=== PATIENT | male | born 1945 | race Caucasian/White ===

== ENCOUNTER 2021-12-11 13:45 | Outpatient (RCR) | payer MEDICARE, SELFPAY | END 2021-12-11 14:44 | disposition home or self-care (01) | PROVIDERS: PCP Family Medicine; Visit Provider Family Medicine | DX: M54.50 Low back pain, unspecified (principal); R26.9 Unspecified abnormalities of gait and mobility; Z51.89 Encounter for other specified aftercare | CPT/HCPCS: 97110; 97140; 97535 ==

== ENCOUNTER 2022-03-11 09:04 | Day surgery (SDC) | payer MEDICARE, SELFPAY ==
--- NOTE | 2022-03-04 14:13 | PT.OPEX ---
PT [place] Outpatient Eval PT [facility] Outpatient Eval Start: 03/04/22 07:27 Freq: Status: Active Protocol: Document 03/04/22 14:03 CLK (Rec: 03/04/22 14:09 CLK [id number]) E-signed By Esther Tariq PT Physical Therapy Outpatient Evaluation Insurance Information Recert Due Date 05/27/22 Insurance Name Medicare B Medical Diagnosis Pre-Op Lt TKA Treating Diagnosis Lt knee pain, impaired WB/ balance and gait skills Fall Risk Referring MD Dr Valentin Mo Subjective Subjective Roc reports having Lt knee pain for quite a few years - 2018? Initially had a scope. Noted severe arthritis which has advanced to the necessity of requiring replacement. No fall no accident. Pain is an average of 6/10 and located at distal quad and med/lat knee joint, but closer to front. Twisting movement hurts the most. I can still tolerate walking for about an hour at a mod to brisk pace. I have a walking stick, but will borrow a walker from someone. I only take ibuprofen occasionally. Have been icing intermittently . Denies any significant edema or N/T or referred pain. Pain Comments 10/25 Date of Last Physician Visit 02/27/22 Date of Next Physician Visit 03/11/22 Current Work Status Retired Precautions Treatment Precautions/Contraindications Heart Involvement/Stents, Rt shoulder Scope, Skin CA, Chronic LBP Weight Bearing Status Full Weight Bearing Therapy Limitations/Systems Review Not Limited Objective Range of Motion Lt knee 2-2-129 / Rt knee 2-0- 134 Strength Lt knee Flex 3+/5, hamstring 4 /5 Ankle Inver/Ever 4-/5 Swelling Mid Patellar girth: Rt 40 cm / Lt 40.4 cm Palpation Pain report with mild to mod patellar grind, with light+ pressure at distal quad as well as med and lat joint line . No pain at hamstring or gastroc, until overstretched by PT. Balance & Gait Reduced arm swing and UT/LT seperation with gait, but full WB and symmetric stride. Good Lt knee AROM SLS 5 seconds Posture Flattened lumbar spine Assessment Assessment/Impression 77 yo with DX of chronic Lt knee pain and OA. He arrived today via IND ambulation without any AD. He typically does not use an aid, but has a walking stick. He has good ambulation with full WB and heel to toe gait. He can sit to stand without use of UE on chair arms with only slightly reduced Lt WB in process. Double leg squat to approx 70 deg before observed small weight shift to reduce WB into involved Lt side. He can SLS for 5+ seconds, AROM 2-2-129. No significant measurable edema at mid pat (.4 mm). He lives with his , who will be with him for full rehab. He will be borrowing a walker and cane from a friend. Looking to also borrow a shower chair and commode elevation seat. He has good understanding of HEP, we completed them here and he was educated in Fall Preventiong, pain control and wound care. Thank you for this referral. Plan of Care Rehabilitation Potential Good Physical Therapy Goals By the end of one pre-op session, Roc will have: 1. Educated in knowledge of Home Care Recovery (AD, Home modifications, Lifestyle changes, Physical activity expectations) 2. Client will be educated in pain control and wound care, bathing requirements. 3. Educated in Fall Prevention in the home 4. Demonstrated and IND in proper execution of TKA HEP with HO. Coordination/Communication With Referral Source Treatment Plan/Direct Interventions Gait Training,Neuromuscular Re -ed,Self-Care/Home Management, Therapeutic Activities, Therapeutic Exercises Frequency/Duration One Pre-Op visit 2X/Wk for 8-10 weeks p/o Patient Will Be Discharged From Therapy Completion of LTG(s),Skills Plateau,Independent w/HEP, Independently Progressing Evaluation Billing Untimed Code Treatment Minutes 29 Complexity Moderate Certification Information Initial Certification Date 03/04/22 Ending Certification Date 05/27/22 Provider Signature Shows Agreement With POC & Medical Necessity Physician Signature & Date Requested Please Sign/Date Here Physician Comment/Change : Physician NPI Number #
[2022-03-11] VITALS (26 sets, daily range): BP systolic 99–138; BP diastolic 63–93; PULSE 53–82; RESP 16–18; TEMP 35.2–36.5; O2SAT 94–100; BMI 27.6
[2022-03-11] MEDS: TRANEXAMIC ACID 100 MG/ML INJ 1000 MG IV (09:08)
[2022-03-11] MEDS: CELECOXIB 200 MG CAPSULE PO ×2 (09:25→21:40)
[2022-03-11] MEDS: ACETAMINOPHEN 500 MG TABLET 1000 MG PO ×2 (09:25→17:38)
[2022-03-11] MEDS: OXYCODONE (CR) 10 MG TAB.ER.12H PO (09:25)
[2022-03-11] MEDS: SODIUM CHLORIDE 0.9 % (FLUSH) 10 ML SYRINGE IVF (09:30)
[2022-03-11] MEDS: LACTATED RINGERS 1000 ML 1,000 ML 100 ML IV (09:30)
--- NOTE | 2022-03-11 10:24 | SUR.PREOP ---
TIME?OUT:?1020 PT/Oniel MOLINA RN/Tracy GALLARDO MDA?VERIFICATION?OF?SURGICAL?SITE,?PROCEDURE,?AND?CONSENT OBTAINED?PRIOR?TO?INVASIVE?PROCEDURE.
[2022-03-11] MEDS: fentaNYL 100 MCG/2 ML inj IVP (10:25)
[2022-03-11] MEDS: MIDAZOLAM HCL 1 MG/ML inj IVP (10:25)
--- NOTE | 2022-03-11 10:42 | P.NB_ITS ---
Nerve Block Nerve Block Time Seen by Provider: : Date Seen: 03/11/22 Type of block requested by surgeon for post-operative analgesia: adductor canal Side: left Time out performed: Yes Verification of patient name: Yes Verification of date of : Yes Site marking: site marked Name of person performing procedure: Narayan Continuous monitoring Was continuous monitoring of O2 sat, B/P, telemetry monitor, recorded every 15 minutes?: Yes Procedure Checklist: sterile prep, needles and gloves Ultrasound guided. Images saved: Yes Medications given in 5ml increments after negative aspiration: Ropivicaine %: 0.5 mL: 20 Needle gauge: 20 Decadron (mg): 10 Precedex (mcg): 25 Patient tolerated procedure well: Yes Additional comments: Needle noted adjacent to nerve Block Charges Block Charge (with Pro Fee): Femoral Nerve Use of Ultrasound Machine for Block: Yes- US Guidance/pain block
--- NOTE | 2022-03-11 10:48 | P.NB_ITS ---
Nerve Block Nerve Block Time Seen by Provider: : Date Seen: 03/11/22 Type of block requested by surgeon for post-operative analgesia: geniculars Side: left Time out performed: Yes Verification of patient name: Yes Verification of date of : Yes Site marking: site marked Name of person performing procedure: Narayan Continuous monitoring Was continuous monitoring of O2 sat, B/P, environmental monitoring technician, recorded every 15 minutes?: Yes Procedure Checklist: sterile prep, needles and gloves Medications given in 5ml increments after negative aspiration: Ropivicaine %: 0.5 mL: 9 Needle gauge: 25 Patient tolerated procedure well: Yes Block Charges Block Charge (with Pro Fee): Genicular Nerve Block Use of Ultrasound Machine for Block: No
[2022-03-11] MEDS: CEFAZOLIN 2 GM INJ IVP (10:50)
--- NOTE | 2022-03-11 12:34 | CRLHL7_ITS ---
For Patients: As a result of the Cures Act, medical imaging exams and procedure reports are released immediately into your electronic medical record. You may view this report before your referring provider. If you have questions, please contact your health care provider. Indication: Postop total knee arthroplasty. Technique: Two views. Comparison: None. Findings/Impression: Postsurgical change of total knee arthroplasty. Prosthesis components are in expected position. No fracture. Postsurgical subcutaneous gas. No radiopaque foreign body. Dictated by Erik Plata MD @ 03/11/2022 2:23:06 PM (Electronically Signed)
--- NOTE | 2022-03-11 12:35 | P.ORPRC_ITS ---
Procedure Note Date of procedure: 03/11/22 Procedure: SURGEON: Valentin Mo MD WORK MEASUREMENT ENGINEER: Isha Pittman PA-C PREOPERATIVE DIAGNOSIS: Left knee osteoarthritis POSTOPERATIVE DIAGNOSIS: Left knee osteoarthritis NAME OF OPERATION: Left total knee arthroplasty ANESTHESIA: Spinal ESTIMATED BLOOD LOSS: 0 mL COMPLICATIONS: None SPECIMENS: None DRAINS: None PREOPERATIVE ANTIBIOTICS: Ancef 2 grams IMPLANTS: 1. J&J Attune # 8 posterior stabilized femur 2. # 8 fixed-bearing tibia 3. # 8 posterior stabilized, 5 mm fixed-bearing polyethylene 4. 41 patella INDICATIONS: The patient is a 77-year-old male with a longstanding history of severe, unrelenting left knee pain secondary to end-stage (grade IV) left knee osteoarthritis. Despite appropriate nonoperative management, including activity modification, anti-inflammatories, pdcn-wgs-fqskhhc pain medication, bracing, physical therapy, and injections they continue to have pain and disability. Operative intervention was offered. The risks, benefits and expected outcomes were discussed in detail. These included but were not limited to: Infection, bleeding, injury to blood vessel or nerve, venous thromboembolism. All questions were answered to their satisfaction. Use of an resident programs assistant was necessary throughout the case for patient positioning and safety, soft tissue retraction, and closure. PROCEDURE: Spinal anesthesia was administered. The patient was placed supine on the operating table. The resident programs assistant made sure the patient was positioned appropriately. The lower extremity was prepped and draped in the usual sterile fashion. The limb was exsanguinated with the Rashid bandage. The pneumatic tourniquet was inflated to 300 mmHg. A standard anterior incision was made with the knee in flexion. Subcutaneous dissection was sharply taken through fascial layer #1. Full-thickness medial and lateral flaps were elevated. The resident programs assistant retracted the soft tissues and protected them throughout the case. A standard medial parapatellar approach was made. The patella was everted. The infrapatellar fat pad was preserved. The menisci and cruciate ligaments were sharply d?brided. Marginal osteophytes were d?brided with the rongeur. The drill was used to penetrate the femoral canal. The canal was aspirated and irrigated with pulse lavage. The intramedullary femoral guide was placed for a 5-degree valgus cut, removing 10 mm off the distal femur. The saw was used to make the cut. Whitesides line and the trans epicondylar axis were marked. The femoral sizing guide was pinned onto the distal femur. Three degrees of external rotation nicely parallels the transepicondylar axis. Pins were placed for posterior referencing. The four-in-one cutting guide was pinned onto the distal femur. The anterior, posterior, and chamfer cuts were made. The resident programs assistant protected the collateral ligaments. The box cutting guide was pinned. The box cuts were made. The boxed trial was placed and was an excellent fit. Drill holes for the lugs were made. Attention was then turned to the proximal tibia. The extramedullary tibial guide was placed for a neutral varus/valgus cut with 5 degrees of posterior slope, removing 2 mm based off the medial tibial surface. The resident programs assistant protected the collateral ligaments and the neurovascular bundle. The saw was used to make the cut. Trial components were placed. The knee was nicely balanced in both flexion and extension. The trial components were removed. The tray was placed in appropriate rotation, parallel to our tibial cutting pins. It was pinned by the resident programs assistant and the drill and the punch were used. The tray was removed. The punch was used again. We placed a bone plug in the femoral canal. Attention was then turned to the patella. [place] patellar thickness was 24 mm. The lobster claw resection guide was used with the 9.5 mm mohamud. The saw was used to make the cut. Drill holes were made by the resident programs assistant. The trial was placed and was an excellent fit. Cancellous surfaces were irrigated with pulse lavage and thoroughly dried by the resident programs assistant. We cemented the tibial component, then the femoral component. A trial spacer was placed. The knee was brought into full extension. We then cemented the patellar component. Excessive cement was removed. The cement was allowed to harden. We impacted the 5 mm polyethylene onto the tibial tray. The knee was taken through a range of motion and was found to be nicely balanced in both flexion and extension. The patella tracks centrally. The resident programs assistant did a three minute dilute Betadine solution soak. The resident programs assistant irrigated the wound with 3 liters of normal saline via pulse lavage. The resident programs assistant reapproximated the extensor mechanism with #1 Vicryl in an interrupted tqaifb-ej-ajfnv fashion. The resident programs assistant then ran the extensor mechanism with a #1 PDO Stratafix. The resident programs assistant closed the subcutaneous tissues with a 3-0 Stratafix and the skin with a running 3-0 Stratafix in a subcuticular fashion. Glue was used to seal the skin. The resident programs assistant placed a dry dressing, SUZIE stocking, and Polar Care. Sponge and needle counts were correct x2. The patient tolerated the procedure well. There were no apparent complications. They were carefully transferred to the hospital bed and taken to the postanesthesia care unit in satisfactory condition. PLAN: The patient will be mobilized with physical therapy. Aspirin will be used for DVT prophylaxis. They will be discharged to home once medically appropriate.
--- NOTE | 2022-03-11 13:15 | W.ANESCHARGE ---
Anesthesia Charges Start Date/Time Anesthesia Start Date: 03/11/22 Anesthesia Start Time: 10:45 Stop Date/Time Anesthesia Stop Date: 03/11/22 Anesthesia Stop Time: 13:12 Summary Emergency: No Extremes of Age: Over 72-CPT [id number]
--- NOTE | 2022-03-11 14:39 | P.IMCN_ITS ---
Date of Consult Consult date: 03/11/22 Requesting Physician: Orthopedics Primary Care Provider: Oz Cortez MD Consult Narrative Narrative: HOSPITALIST CONSULT Hospital Day # 1 Post Op Day # 0 NAME OF OPERATION:? Left total knee arthroplasty ANESTHESIA:? Spinal ESTIMATED BLOOD LOSS:? 0 mL COMPLICATIONS:? None The hospital medicine team was asked by orthopedics team to manage the patient's hx of Non Hodgkins Lymphoma and CAD, s/p NSTEMI and ANGELA x 2. Patient was interviewed on the floor, postop 3 hours. is bedside. He is coherent, insightful and making jokes. No obvious perioperative concerns or questions. I updated the [facility] histories and Medications and Allergies in the Expanse tabs REVIEW OF SYSTEMS: 12-point ROS completed with patient and negative unless otherwise stated in HPI or below. PHYSICAL EXAM: CODE STATUS: FULL CODE CONSTITUTIONAL: Conversive, good historian. A/O. Knows setting and context. VITAL SIGNS: see record. HEENT: Normocephalic, atraumatic. PERRL, EOMI, conjunctivae pink, no scleral icterus. Ears and nose externally normal. Pharynx normal. NECK: No JVD. No carotid bruit, no thyromegaly, no adenopathy. CHEST: Clear to auscultation bilaterally HEART: No harsh murmurs. S1/S2. ABDOMEN: Flat, soft, nontender. Normal bowel sounds. EXTREMITIES: No edema. MUSCULOSKELETAL: Surgical dressing is intact. No obvious hematoma. NEURO: Cranial nerves intact. Normal affect. No gross deficits. Speech intelligible. SKIN: No rashes, petechiae, concerning changes PSYCHIATRIC: Euthymic. INVESTIGATIONS: EMR Reviewed DISPOSITION: MedSurg Recovery; Discharge tomorrow DVT: Agree with ortho plan for DVT prevention GI: PO intake PFSH PFS Medical History (Updated 03/11/22 @ 15:04 by Liz Arreloa MD) Cataract Lymphoma (~06/2012) Mixed hyperlipidemia Skin cancer Spinal stenosis Surgical History (Updated 03/11/22 @ 15:03 by Liz Arreola MD) H/O heart artery stent History of lymph node biopsy History of removal of Port-a-Cath S/P appendectomy (~1964) S/P arthroscopy of right shoulder S/P medial meniscectomy of left knee (12/06/20) Status post left knee replacement Family History (Updated 02/25/22 @ 13:27 by July Ang RN) Mother Ovarian cancer Father History of heart bypass surgery Brother Diabetes Social History Smoking Status: Never smoker How often do you have a drink containing alcohol: never AUDIT-C Alcohol total score: 0 Non-prescribed substance use: denies use Caffeine: Yes (coffee, 1 cup/day) service: No Meds Home Medications and Allergies Home Medications Medication Instructions Recorded Confirmed Type atorvastatin 40 mg tablet 40 mg PO HS 01/07/22 03/11/22 History selenium 100 mcg tablet 100 mcg PO DAILY 01/07/22 03/11/22 History aspirin 81 mg tablet,delayed 81 mg PO DAILY 03/11/22 03/11/22 History release glucosamine 750 tq-upujhofmwru-mxe 1 tab PO BID 03/11/22 03/11/22 History no1 625 mg-C 30 mg-dougie 1 mg tablet (Rnfurctvyqj-Okcnbhuxcxa-TKJ) ibuprofen 200 mg tablet 200 - 800 mg PO Q6H PRN 03/11/22 03/11/22 History melatonin 3 mg tablet 3 mg PO HS 03/11/22 03/11/22 History multivitamin (Multiple Vitamins 1 tab PO DAILY 03/11/22 03/11/22 History tablet) nitroglycerin 0.4 mg sublingual 0.4 mg sublingual Q5M PRN 03/11/22 03/11/22 History tablet Allergies Allergy/AdvReac Type Severity Reaction Status Date / Time No Known Allergies Allergy Unknown Verified 03/11/22 09:13 Exam Const: Vital Signs, click to edit/add: Vital Signs - 24 hr 03/11/22 09:26 03/11/22 10:22 03/11/22 10:25 Temperature 97.7 F Pulse Rate 75 65 75 Pulse Rate [Pulse Oximeter] Respiratory Rate 18 18 16 Blood Pressure 138/93 H 138/81 122/81 Blood Pressure [Ri ght Arm] Pulse Oximetry 95 96 95 Oxygen Delivery Me thod Room Air Nasal Cannula Nasal Cannula Oxygen Flow Rate 3 3 03/11/22 10:30 03/11/22 13:15 03/11/22 13:20 Temperature 97.0 F L Pulse Rate 64 67 61 Pulse Rate [Pulse Oximeter] Respiratory Rate 16 16 16 Blood Pressure 104/68 100/63 99/63 Blood Pressure [Ri ght Arm] Pulse Oximetry 94 100 100 Oxygen Delivery Me thod Nasal Cannula OxyMask OxyMask Oxygen Flow Rate 3 4 4 03/11/22 13:25 03/11/22 13:30 03/11/22 13:35 Temperature Pulse Rate 65 64 65 Pulse Rate [Pulse Oximeter] Respiratory Rate 16 16 16 Blood Pressure 101/65 103/67 105/71 Blood Pressure [Ri ght Arm] Pulse Oximetry 99 97 97 Oxygen Delivery Me thod OxyMask OxyMask Room Air Oxygen Flow Rate 3 2 03/11/22 13:40 03/11/22 13:45 03/11/22 13:50 Temperature 97.0 F L Pulse Rate 64 64 64 Pulse Rate [Pulse Oximeter] Respiratory Rate 16 16 16 Blood Pressure 104/69 104/67 104/67 Blood Pressure [Ri ght Arm] Pulse Oximetry 96 96 97 Oxygen Delivery Me thod Room Air Room Air Room Air Oxygen Flow Rate 2 03/11/22 13:57 03/11/22 14:00 03/11/22 14:15 Temperature 95.4 F L Pulse Rate 64 Pulse Rate [Pulse Oximeter] 53 L 55 L Respiratory Rate 16 16 16 Blood Pressure Blood Pressure [Ri ght Arm] 106/64 109/69 112/71 Pulse Oximetry 99 99 Oxygen Delivery Me thod Room Air Room Air Oxygen Flow Rate Assessment and Plan Assessment and plan (1) Status post left knee replacement: Problem comment: February 2022, Dr. Mo [facility] medicine team is happy to follow the patient through to discharge. I agree with the DVT prophylaxis plan. I am adding telemetry for the evening. I reviewed his most recent stress test and cardiology visit in [facility]. No concerns. Status: Acute (2) Non-ST elevation (NSTEMI) myocardial infarction: Problem comment: NSTEMI in January of 2017. Cath revealed 90% stenosis in the proximal left circumflex coronary artery along with a 70% stenosis in the right posterior descending coronary artery. He had a 50% stenosis in the left anterior descending coronary artery, however, the IFR was negative. DSE placement to the proximal left circumflex coronary artery, and the posterior descending coronary artery. Echocardiogram at that time revealed normal left ventricular size and systolic function with estimated ejection fraction of 50%. There is basal inferior wall hypokinesis. He had no significant valve disease. Most recent nuclear perfusion stress test performed in the fall. That study was entirely normal, with a preserved ejection fraction. (60%) Status: Acute (3) H/O heart artery stent: Problem comment: January 2017. drug-eluting stent placement to the proximal left circumflex c oronary artery, and the posterior descending coronary artery. Status: Acute (4) Mixed hyperlipidemia: Status: Acute (5) Spinal stenosis: Status: Acute
[2022-03-11] MEDS: CEFAZOLIN 2 GM in 0.9 % SODIUM CHLORIDE Mini-bag 100 ML IVPB (16:58)
[2022-03-11] MEDS: OXYCODONE 5 MG TABLET PO ×2 (18:47→20:41)
[2022-03-11] MEDS: 0.9 % SODIUM CHLORIDE 500 ML IV (20:02)
[2022-03-11] MEDS: ONDANSETRON 2 MG/ML inj 4 MG IVP (20:02)
[2022-03-11 20:21] LABS: HCO3 VBG 29 mmol/L (21-28); PCO2 VBG 44 mmHG (40-50); pH VBG 7.417 (7.32-7.43)
[2022-03-11 20:23] LABS: Hemoglobin* 12.5 gm/dL (13.5-17.5)
[2022-03-11 20:38] LABS: Chloride* 99 mmol/L (96-114); Potassium* 4.7 mmol/L (3.6-5.1); Sodium* 136 mmol/L (135-149)
[2022-03-11 20:41] LABS: Blood Urea Nitrogen* 23 mg/dL (7-30); Carbon Dioxide* 26 mmol/L (20-32); Creatinine* 0.8 mg/dL (0.5-1.5); Est. Creatinine Clearance* 67.98; Estimated Glomerular Filt Rate 92 ml/min; Glucose* 196 mg/dL (60-115)
[2022-03-11 20:42] LABS: Calcium* 7.7 mg/dL (8.4-10.6)
[2022-03-11] MEDS: ATORVASTATIN CALCIUM 40 MG TABLET PO (21:40)
[2022-03-11] MEDS: SENNOSIDES 1 TAB TABLET 2 TAB PO (21:41)
[2022-03-11] MEDS: MELATONIN 3 MG TABLET PO (21:41)
[2022-03-11] MEDS: ASPIRIN 81 MG TABLET EC PO (21:41)
[2022-03-12] MEDS: ACETAMINOPHEN 500 MG TABLET 1000 MG PO ×3 (00:49→11:46)
[2022-03-12] MEDS: CEFAZOLIN 2 GM in 0.9 % SODIUM CHLORIDE Mini-bag 100 ML IVPB ×2 (00:50→09:03)
[2022-03-12] MEDS: OXYCODONE 5 MG TABLET PO ×4 (00:54→14:08)
[2022-03-12 03:00] VITALS: BP 107/61; PULSE 75; RESP 18; TEMP 36.6; O2SAT 95
--- NOTE | 2022-03-12 06:10 | PC.NURSE ---
Shift note: Surgical dressing is C/D/I, surrounding skin is intact and pink. Pt rates pain 7/10, RN treated per eMAR with relief and pt is able to rest. Voiding, no c/o nausea. Pt has had a hypotensive episode in PM. He got up to the BR, walked all the way and back to bed and suddenly became pale sweaty nauseated and lightheaded. His BPs were 56/40, 73/52 in the first few minutes. MD was notified, bolus administered. BPs were in 100th 30 min or so after the episode. Pt repoerts feeling fine since then, VS are stable throughout the night.
[2022-03-12 06:58] LABS: Hematocrit 36.3 % (37.0-53.0); Immature Granulocytes Abs Auto 0.02 K/uL (0.00-0.30); Lymphocytes Percent Auto 7.7 % (20-44); Mean Corpuscular HGB Conc 33 gm/dL (32-36); Mean Corpuscular Hemoglobin 29 pg (26-34); Mean Corpuscular Volume 86 fL (80-100); Monocytes Percent Auto 6.1 % (0.0-11.0); Platelet Count* 215 K/uL (140-440); RDW Coefficient of Variation % 13.6 % (11.5-15.5); Red Blood Count 4.21 m/uL (4.30-5.90); White Blood Count* 11.34 K/uL (4.50-11.00)
[2022-03-12 07:08] VITALS: PULSE 84
[2022-03-12 07:11] LABS: Slide Review Reflex No
[2022-03-12 07:14] LABS: Prothrombin Time 15.9 Seconds
[2022-03-12 07:26] LABS: Potassium* 5.3 mmol/L (3.6-5.1); Sodium* 135 mmol/L (135-149)
[2022-03-12 07:29] LABS: Blood Urea Nitrogen* 23 mg/dL (7-30); Creatinine* 0.8 mg/dL (0.5-1.5); Est. Creatinine Clearance* 67.98; Estimated Glomerular Filt Rate 92 ml/min
[2022-03-12 07:45] VITALS: BP 111/76; PULSE 71; RESP 16; TEMP 37; O2SAT 94
--- NOTE | 2022-03-12 08:47 | PM.ORPN ---
Subjective Subjective Time Seen by Provider: 07:30 Date Seen: 03/12/22 Principal diagnosis: Status post left knee replacement Interval history: Roc is comfortable this morning. He has had breakfast with no nausea or vomiting this morning. He had an hypotensive episode. He currently feels fine. He has been using the urinal rather than getting up to use the restroom he states. Ortho Exam Narrative Exam Narrative: Alert and oriented x3. Patient is in no acute distress. Converses without labored breathing. Hearing is grossly intact. Ambulates with a walker. Examination of left knee shows the dressing is intact. Very minimal swelling. No erythema or or ecchymosis. No sign of infection. Strong quads. CMS intact left lower extremity. Const Vital Signs, click to edit/add: Vital Signs - 24 hr 03/11/22 09:26 03/11/22 10:22 03/11/22 10:25 Temperature 97.7 F Pulse Rate 75 65 75 Pulse Rate [Pulse Oximeter] Respiratory Rate 18 18 16 Blood Pressure 138/93 H 138/81 122/81 Blood Pressure [Right Arm] Pulse Oximetry 95 96 95 Oxygen Delivery Method Room Air Nasal Cannula Nasal Cannula Oxygen Flow Rate 3 3 03/11/22 10:30 03/11/22 13:15 03/11/22 13:20 Temperature 97.0 F L Pulse Rate 64 67 61 Pulse Rate [Pulse Oximeter] Respiratory Rate 16 16 16 Blood Pressure 104/68 100/63 99/63 Blood Pressure [Right Arm] Pulse Oximetry 94 100 100 Oxygen Delivery Method Nasal Cannula OxyMask OxyMask Oxygen Flow Rate 3 4 4 03/11/22 13:25 03/11/22 13:30 03/11/22 13:35 Temperature Pulse Rate 65 64 65 Pulse Rate [Pulse Oximeter] Respiratory Rate 16 16 16 Blood Pressure 101/65 103/67 105/71 Blood Pressure [Right Arm] Pulse Oximetry 99 97 97 Oxygen Delivery Method OxyMask OxyMask Room Air Oxygen Flow Rate 3 2 03/11/22 13:40 03/11/22 13:45 03/11/22 13:50 Temperature 97.0 F L Pulse Rate 64 64 64 Pulse Rate [Pulse Oximeter] Respiratory Rate 16 16 16 Blood Pressure 104/69 104/67 104/67 Blood Pressure [Right Arm] Pulse Oximetry 96 96 97 Oxygen Delivery Method Room Air Room Air Room Air Oxygen Flow Rate 2 03/11/22 13:57 03/11/22 14:00 03/11/22 14:15 Temperature 95.4 F L Pulse Rate 64 Pulse Rate [Pulse Oximeter] 53 L 55 L Respiratory Rate 16 16 16 Blood Pressure Blood Pressure [Right Arm] 106/64 109/69 112/71 Pulse Oximetry 99 99 Oxygen Delivery Method Room Air Room Air Oxygen Flow Rate 03/11/22 16:13 03/11/22 14:30 03/11/22 14:45 Temperature 95.7 F L Pulse Rate 60 Pulse Rate [Pulse Oximeter] 54 L 57 L Respiratory Rate 16 16 Blood Pressure Blood Pressure [Right Arm] 112/67 114/65 Pulse Oximetry 98 99 Oxygen Delivery Method Room Air Room Air Oxygen Flow Rate 03/11/22 15:00 03/11/22 15:30 03/11/22 16:00 Temperature 96.4 F L 96.9 F L Pulse Rate Pulse Rate [Pulse Oximeter] 59 L 56 L 60 Respiratory Rate 16 18 16 Blood Pressure Blood Pressure [Right Arm] 120/68 121/67 118/76 Pulse Oximetry 99 98 99 Oxygen Delivery Method Room Air Room Air Room Air Oxygen Flow Rate 03/11/22 17:00 03/11/22 18:00 03/11/22 19:00 Temperature 97.0 F L 97.2 F L 97.2 F L Pulse Rate Pulse Rate [Pulse Oximeter] 68 74 77 Respiratory Rate 18 16 16 Blood Pressure Blood Pressure [Right Arm] 135/70 118/70 110/68 Pulse Oximetry 97 99 98 Oxygen Delivery Method Room Air Room Air Room Air Oxygen Flow Rate 03/11/22 20:54 03/11/22 22:46 03/12/22 03:00 Temperature 97.6 F 98 F Pulse Rate 81 Pulse Rate [Pulse Oximeter] 82 75 Respiratory Rate 18 18 Blood Pressure Blood Pressure [Right Arm] 114/67 107/61 Pulse Oximetry 96 95 Oxygen Delivery Method Room Air Nasal Cannula Oxygen Flow Rate 1 03/12/22 07:08 Temperature Pulse Rate 84 Pulse Rate [Pulse Oximeter] Respiratory Rate Blood Pressure Blood Pressure [Right Arm] Pulse Oximetry Oxygen Delivery Method Oxygen Flow Rate Assessment and Plan Assessment and plan (1) Status post left knee replacement: Problem details: Date of surgery 03/11/2022 Status: Acute Assessment and Plan: Plan for discharge is today to home if they meet discharge criteria. DVT prophylaxis includes aspirin 81 mg twice daily x1 month, Drew stockings x1 month may remove for 1 hr per day, frequent ambulation Remove dressing in 1 week. Observe wound and phone Orthopedics with any questions or concerns Return to clinic in 1 week for a wound check Return to clinic in [address] Mo Minimize narcotic use. Wean off and discontinue soon as possible. Activities as tolerated. No strenuous activity. Outpatient physical therapy as scheduled. Ice and elevate the operative extremity. No restriction on ice. (2) Non-ST elevation (NSTEMI) myocardial infarction: Problem details: NSTEMI in January of 2017. Cath revealed 90% stenosis in the proximal left circumflex coronary artery along with a 70% stenosis in the right posterior descending coronary artery. He had a 50% stenosis in the left anterior descending coronary artery, however, the IFR was negative. DSE placement to the proximal left circumflex coronary artery, and the posterior descending coronary artery. Echocardiogram at that time revealed normal left ventricular size and systolic function with estimated ejection fraction of 50%. There is basal inferior wall hypokinesis. He had no significant valve disease. Most recent nuclear perfusion stress test performed in the fall. That study was entirely normal, with a preserved ejection fraction. (60%) Status: Acute (3) H/O heart artery stent: Problem details: January 2017. drug-eluting stent placement to the proximal left circumflex coronary artery, and the posterior descending coronary artery. Status: Acute (4) Mixed hyperlipidemia: Status: Acute (5) Spinal stenosis: Status: Acute
[2022-03-12] MEDS: CELECOXIB 200 MG CAPSULE PO (09:02)
[2022-03-12] MEDS: ASPIRIN 81 MG TABLET EC PO (09:02)
[2022-03-12] MEDS: SENNOSIDES 1 TAB TABLET 2 TAB PO (09:03)
[2022-03-12] MEDS: ONDANSETRON 2 MG/ML inj 4 MG IVP (10:20)
[2022-03-12 10:32] VITALS: BP 104/67; PULSE 84; RESP 18; TEMP 36.6
[2022-03-12 11:00] VITALS: BP 87/75; PULSE 72; RESP 18; TEMP 36.6; O2SAT 94
--- NOTE | 2022-03-12 11:11 | PM.DS1 ---
DS: Providers Provider Date Seen: 03/12/22 Primary care physician: Oz Cortez MD Attending Physician on discharge: Valentin Mo MD Date of Discharge: 03/12/22 DS: Diagnosis Discharge Diagnosis (1) Status post left knee replacement: Status: Acute Problem details: Date of surgery 03/11/2022 (2) Lightheadedness: Status: Acute Problem details: Patient has had postop lightheadedness. Initially blood pressures were borderline low. Pressures remain in the low normal range without hypotension. Concern for side effects from oxycodone as the cause of his feeling lightheaded and nauseated. DS: Summary Hospital Course Hospital Course: 77-year-old male underwent left knee arthroplasty. Procedures performed by Dr. Mo on the day of admission. There were no operative complications. Postoperatively he has been feeling woozy when he gets up. Initially this was thought to be due to some postoperative low blood pressure. Blood pressures were borderline low after surgery. He continues to feel woozy this morning when he gets up. Blood pressures however have been in the low normal range. He is not having fever, chest pain, abdominal pain, shortness of breath. He does have nausea. It is suspected that his wooziness is at least in part due to oxycodone 10 mg taken for pain. Status at Discharge Functional status at discharge: uses cane/walker Overall status at discharge: patient is progressing back to baseline Time Spent with Patient Time attestation: Total time spent providing and/or coordinating discharge services: Time spent: Less than 30 minutes Exam Narrative: Exam Narrative: He is alert and appears in no distress. Speech is normal. Mood and affect are bright. Respirations unlabored. He moves his feet and ankles well with normal strength, normal pulses and no edema. Const: Vital Signs, click to edit/add: Vital Signs - 24 hr 03/11/22 13:15 03/11/22 13:20 03/11/22 13:25 Temperature 97.0 F L Pulse Rate 67 61 65 Pulse Rate [Pulse Oximeter] Respiratory Rate 16 16 16 Blood Pressure 100/63 99/63 101/65 Blood Pressure [Ri ght Arm] Pulse Oximetry 100 100 99 Oxygen Delivery Me thod OxyMask OxyMask OxyMask Oxygen Flow Rate 4 4 3 03/11/22 13:30 03/11/22 13:35 03/11/22 13:40 Temperature 97.0 F L Pulse Rate 64 65 64 Pulse Rate [Pulse Oximeter] Respiratory Rate 16 16 16 Blood Pressure 103/67 105/71 104/69 Blood Pressure [Ri ght Arm] Pulse Oximetry 97 97 96 Oxygen Delivery Me thod OxyMask Room Air Room Air Oxygen Flow Rate 2 03/11/22 13:45 03/11/22 13:50 03/11/22 13:57 Temperature 95.4 F L Pulse Rate 64 64 64 Pulse Rate [Pulse Oximeter] Respiratory Rate 16 16 16 Blood Pressure 104/67 104/67 Blood Pressure [Ri ght Arm] 106/64 Pulse Oximetry 96 97 Oxygen Delivery Me thod Room Air Room Air Oxygen Flow Rate 2 03/11/22 14:00 03/11/22 14:15 03/11/22 16:13 Temperature Pulse Rate 60 Pulse Rate [Pulse Oximeter] 53 L 55 L Respiratory Rate 16 16 Blood Pressure Blood Pressure [Ri ght Arm] 109/69 112/71 Pulse Oximetry 99 99 Oxygen Delivery Me thod Room Air Room Air Oxygen Flow Rate 03/11/22 14:30 03/11/22 14:45 03/11/22 15:00 Temperature 95.7 F L 96.4 F L Pulse Rate Pulse Rate [Pulse Oximeter] 54 L 57 L 59 L Respiratory Rate 16 16 16 Blood Pressure Blood Pressure [Ri ght Arm] 112/67 114/65 120/68 Pulse Oximetry 98 99 99 Oxygen Delivery Me thod Room Air Room Air Room Air Oxygen Flow Rate 03/11/22 15:30 03/11/22 16:00 03/11/22 17:00 Temperature 96.9 F L 97.0 F L Pulse Rate Pulse Rate [Pulse Oximeter] 56 L 60 68 Respiratory Rate 18 16 18 Blood Pressure Blood Pressure [Ri ght Arm] 121/67 118/76 135/70 Pulse Oximetry 98 99 97 Oxygen Delivery Me thod Room Air Room Air Room Air Oxygen Flow Rate 03/11/22 18:00 03/11/22 19:00 03/11/22 20:54 Temperature 97.2 F L 97.2 F L Pulse Rate 81 Pulse Rate [Pulse Oximeter] 74 77 Respiratory Rate 16 16 Blood Pressure Blood Pressure [Ri ght Arm] 118/70 110/68 Pulse Oximetry 99 98 Oxygen Delivery Me thod Room Air Room Air Oxygen Flow Rate 03/11/22 22:46 03/12/22 03:00 03/12/22 07:08 Temperature 97.6 F 98 F Pulse Rate 84 Pulse Rate [Pulse Oximeter] 82 75 Respiratory Rate 18 18 Blood Pressure Blood Pressure [Ri ght Arm] 114/67 107/61 Pulse Oximetry 96 95 Oxygen Delivery Me thod Room Air Nasal Cannula Oxygen Flow Rate 1 03/12/22 10:32 03/12/22 07:45 Temperature 98 F 98.6 F Pulse Rate 84 Pulse Rate [Pulse Oximeter] 71 Respiratory Rate 18 16 Blood Pressure 104/67 [facility] 111/76 Pulse Oximetry 94 Oxygen Delivery Me thod Room Air Oxygen Flow Rate Documenting provider has reviewed patient's vital signs: yes DS: Data Data Completed and Pending Labs on day of discharge: Labs from last 24 hours 03/12/22 03/12/22 03/12/22 06:33 06:33 06:33 WBC 11.34 H RBC 4.21 L Hgb 12.0 L Hct 36.3 L MCV 86 MCH 29 MCHC 33 RDW Coeff of Zuly 13.6 Plt Count 215 Neut % (Auto) 86.0 H Lymph % (Auto) 7.7 L [place] % (Auto) 6.1 Eos % (Auto) 0.0 Baso % (Auto) 0.0 Neut # (Auto) 9.80 H Lymph # (Auto) 0.90 [place] # (Auto) 0.70 Eos # (Auto) 0.00 Baso # (Auto) 0.00 Abs Immat Gran (auto) 0.02 INR 1.20 H VBG pH VBG pCO2 VBG pO2 VBG HCO3 Sodium 135 Potassium 5.3 H Chloride Carbon Dioxide BUN 23 Creatinine 0.8 Estimated Creat Clear 67.98 Estimated GFR 92 Glucose Calcium 03/11/22 03/11/22 03/11/22 20:17 20:17 20:17 WBC RBC Hgb 12.5 L Hct MCV MCH MCHC RDW Coeff of Zuly Plt Count Neut % (Auto) Lymph % (Auto) [place] % (Auto) Eos % (Auto) Baso % (Auto) Neut # (Auto) Lymph # (Auto) [place] # (Auto) Eos # (Auto) Baso # (Auto) Abs Immat Gran (auto) INR VBG pH 7.417 VBG pCO2 44 VBG pO2 VBG HCO3 29 H Sodium 136 Potassium 4.7 Chloride 99 Carbon Dioxide 26 BUN 23 Creatinine 0.8 Estimated Creat Clear 67.98 Estimated GFR 92 Glucose 196 H Calcium 7.7 L Discharge Plan Discharge Disposition: Home, Self-Care Discharging Surgeon: Valentin Mo Follow-Up Appointment: One week Prescriptions: New acetaminophen 500 mg Tablet 500 - 1,000 mg PO Q6H PRN (Reason: pain) Qty: 100 2RF aspirin 81 mg Tablet,Delayed Release (Dr/Ec) 81 mg PO BID 30 Days Qty: 60 0RF Rx Instructions: DVT prophylaxis oxycodone 5 mg Tablet 2.5 - 5 mg PO Q4-6H PRN (Reason: Pain) Qty: 42 0RF Rx Instructions: minimize and Discontinue as soon as possible sennosides [Senna Lax] 8.6 mg Tablet 17.2 mg PO BID PRN (Reason: constipation) Qty: 100 0RF Rx Instructions: narcotic related constipation Continued atorvastatin 40 mg tablet 40 mg PO HS selenium 100 mcg tablet 100 mcg PO DAILY [id number]-[id number]-[id number]-[id number]-bor [Fmytatiu-Wobsx-XDM(with boron)] 567-618-98-1 mg tablet 1 tab PO BID ibuprofen 200 mg tablet 200 - 800 mg PO Q6H PRN melatonin 3 mg tablet 3 mg PO HS multivitamin [Multiple Vitamins] Tablet 1 tab PO DAILY nitroglycerin 0.4 mg tablet, sublingual 0.4 mg sublingual Q5M PRN Held aspirin 81 mg tablet,delayed release (DR/EC) 81 mg PO DAILY Hold Instructions: Resume on 04/11/22. Activity Level: Activity as Tolerated and No strenuous activity Activity Detail: Keep dressing on for 1 week. Dressing is waterproof. May shower. Surgical glue covers the wound. Attend outpatient physical therapy if scheduled. Ice and elevate operative extremity without restriction. Wear compression stockings for 1 month post surgery. May remove for 1 hour per day. Ambulate every hour throughout the day. If you drive, Do not drive while taking narcotic pain medication. Do not drink alcohol while taking narcotic pain medication. May drive when safe to do so and have full function of the extremities, this may take 6 weeks or more. Notify Orthopedics with any questions or concerns. ([phone]) Patient Instructions: Acetaminophen (By mouth), Aspirin (By mouth), Oxycodone, Rapid Release (By mouth), Senna (By mouth), Precautions after Total Joint Replacement Surgery (DC), Knee Replacement (DC) Forms: Work/Release Restrictions Follow-up: [facility] [Other] - 03/13/22 1:00 pm Lili Salas PA-C [Physician Terrestrial [employer]ologist] - 03/19/22 11:40 am ([facility]) Oz Cortez MD [Primary Care Provider] - (Set up appointment as needed) Discharge Orders: Discharge Order (Routine); Ordered 03/12/22 Ordered By: Tootie Muse
[2022-03-12 11:46] VITALS: TEMP 36.6
--- NOTE | 2022-03-12 14:08 | PC.NURSE ---
Pt received oxycodone 10 mg with celebrex for pain 9 out of 10 with his morning med pass. Fair appetite, no dysphagia with meds. Pt received IV ATB dose #3 this am. Delayed OT d/to nausea, RN treated pt with Zofran 4mg slow IVP. Plan for PT eval after OT finishes with pt. Eval by Tootie crockett PA completed. Discharge orders are processed. Report to Minal Espinal RN who assumed care of this patient at 11:20 am.
--- NOTE | 2022-03-12 14:52 | PC.NURSE ---
Pt initially nauseous and BP's hypotensive. He did later tolerate sitting in the recliner and writer producer encouraged him to increase fluid intake. He drank broth and had 2 pieces of toast without difficulty. BP's increased this afternoon to 120's systolically. Pain has been well controlled with Tylenol and 5 mg Oxycodone. Surgical dressing C,D,&I with cryocuff in place. He was discharged to home in the care of his via wheelchair at 14:50. Pt and his verbalized understanding of discharge instructions and follow up appointments.
== END 2022-03-12 14:56 | disposition home or self-care (01) ==
LOC: OR 09:05 → MEDSURG 09:08
PROVIDERS: Family Medicine; PCP Family Medicine; Visit Provider Orthopaedic Surgery
PROC: (CPT 27447; principal; 2022-03-11 11:00)
DX: M17.12 Unilateral primary osteoarthritis, left knee (principal); R42 Dizziness and giddiness; Z85.72 Personal history of non-Hodgkin lymphomas; I25.10 Atherosclerotic heart disease of native coronary artery without angina pectoris; E78.2 Mixed hyperlipidemia; I25.2 Old myocardial infarction
CPT/HCPCS: 27447; 01402; 36415; 64447; 64454; 73560; 76942; 80048; 82565; 82803; 84132; 84295; 84520; 85018; 85025; 85610; 97110; 97116; 97161; 97165; 97535; 99100; G0378; A9270; C1776; J0690; J1100; J2250; J2405; J2704; J2795; J3010; J7120

== ENCOUNTER 2022-03-18 08:36 | Outpatient (CLI) | payer MEDICARE, SELFPAY | END 2022-03-18 08:37 | disposition home or self-care (01) | LOC: INJ CL 08:36 | PROVIDERS: PCP Family Medicine; Visit Provider Family Medicine | DX: M54.16 Radiculopathy, lumbar region (principal); M51.36 Other intervertebral disc degeneration, lumbar region | CPT/HCPCS: 62323; J0702; Q9966 ==

== ENCOUNTER 2022-05-05 13:00 | Outpatient (RCR) | payer MEDICARE, SELFPAY ==
--- NOTE | 2022-03-17 11:52 | PT.OPDNX ---
PT [place] Outpatient Daily Note PT [facility] Outpatient Daily Note Start: 03/10/22 15:04 Freq: Status: Active Protocol: Document 03/17/22 11:02 JUDAH (Rec: 03/17/22 11:47 JUDAH [id number]) E-signed By Esther Tariq, PT PT OP Daily Progress Note Visit Information Note Type Daily Note Visit Number 2 Insurance Information Recert Due Date 05/27/22 Insurance Name Medicare B Medical Diagnosis Pre-Op Lt TKR Treating Diagnosis Lt knee pain, impaired WB/ balance and gait skills Fall Risk Referring MD Dr Valentin Mo Subjective Subjective VERY painful. I cannot lift my Lt leg on its own. I cannot do a SLR. I have not taken off the TEDS yet, too painful. I finally had a BM. Taking oxy initially 10 mg every 4 hours, down to 5 mg every 6 hours now. Pain Comments 10/25 Precautions Treatment Precautions/Contraindications Heart Involvement/stents, Rt shoudler scope, Skin CA, Chronic LBP Weight Bearing Status Full Weight Bearing Objective Other/Pertinent Objective AROM 0-0-100 (was 129 pre-op) Mid pat girth Rt 40 cm / Lt 43 .9 cm Functional Test Performed & Score SLS 5 sec Patient Instructed in Risks/Benefits Yes Therapeutic Exercise Therapeutic Exercise Minutes (minutes) 20 Therapeutic Exercise: To Restore Educated in and completed TKA Functional Status protocol of: -quad sed/ham set -ankle pumps and circles -short and long arc quad -SLR with slight assistance, 5 reps HOLD 3 sec each -long sitting hamstring stretch X 2 min -seated and supine heel slide/ knee flex - ext Manual Therapy Techniques Manual Therapy Minutes (minutes) 25 Manual Therapy Techniques PROM knee flex/ext to increase to 0-100 deg. Gentle pat mobs and incision gentle CFFM and full quad, mid to distal hamstring, full gastroc. ankle pumps, gentle long leg distraction. Gait & Stair Training Gait Training/Stairs Minutes (minutes) 5 Gait & Stair Training Comments Educated in use of WW 175 feet X 1 loop around clinic. Treatment Minutes Untimed Code Treatment Minutes 12 Timed Code Treatment Minutes 50 Total Treatment Time 62 Billing Units Manual Therapy Units 2 Therapeutic Exercise Units 1 Re-Evaluation Units 1 Assessment/Impression Assessment/Impression Surgery for Lt TKR on 03/11/22 . He cancelled his first session pre scheduled for due to pain. He arrived this date amb with short sride , but symmetric, with use of WW. PROM 2-2-85, PROM 0-2-100 deg. Required assistance lifting Lt leg up onto plinth, and back into sitting post session, but was able to complete good SAQ and SLR with only slight touch/assist X 3 reps. Good increase in AROM, as noted above. Edema increase by 3 cm. He is still wearing bandage. Seeing for f/u later this week. He was able to walk full PT circuit, improved stride length after manual session. He has already reduced his medication and is trying to sit up longer vs in bed or recliner. Educated in ok to rest, recliner is good to elevate and use ice, but try to increase walking tolerance from 2 min to 5 min by next session in 3 days. Plan of Care Physical Therapy Goals In 4-6 weeks, Roc will be able to: 1. Sit to stand with symmetric WB and wihtout use of UE X 5 reps 2. Walk/stand for up to 30 min with use of WW or cane 3. IND in SLR X 10 reps with 5 sec hold. In 6-12 weeks, Roc will be able to: 1. A/D flight of 12 steps with reciprocal gait pattern 90% of the time. 2. Walk/stand for up to 2 hours without difficulties 90% of the time. 3. Squat to approx 80 deg with symmetric WB to increase tasks around the house; feed / water dog, take out garbage, put items in lower cabinets 4. Increased AROM 0-0-110 painfree, edema reduced by 50% Daily Plan of Care Continue per POC Daily Plan of Care Comments Client will be seen again in out-patient setting for re- evaluation, at which time new goals will be established. Recertification Information Initial Certification Date 03/06/22 Recertification Start Date 03/17/22 Recertification Due Date 06/05/22 Reasons to Continue Skilled Therapy Cont to gait skills, WB, ambulation skills, AROM and pain/edema control. Increased strength and endurance Rehabilitation Potential goood Continued Plan of Care and Interventions Gait training, edema control, ambulation and balance/ prop skills, strength and AROM. 2X/Wk for 12 weeks Provider Signature Shows Agreement With POC & Medical Necessity Physician Comment/Change Comment or Changes Physician NPI Number #
== END 2022-06-05 08:37 | disposition home or self-care (01) ==
PROVIDERS: PCP Family Medicine; Visit Provider Orthopaedic Surgery
DX: Z96.652 Presence of left artificial knee joint (principal); Z51.89 Encounter for other specified aftercare
CPT/HCPCS: 97110; 97116; 97140; 97162; 97164

== ENCOUNTER 2022-08-13 11:15 | Outpatient (RCR) | payer MEDICARE, SELFPAY ==
--- NOTE | 2022-07-02 08:22 | PT.OPEX ---
PT [place] Outpatient Eval PT [facility] Outpatient Eval Start: 07/02/22 07:19 Freq: Status: Active Protocol: Document 07/02/22 07:19 CLHillary (Rec: 07/02/22 08:18 CLHillary [id number]) E-signed By Esther Tariq PT Physical Therapy Outpatient Evaluation Insurance Information Recert Due Date 09/26/22 Insurance Name Medicare B Medical Diagnosis S/P Lt TKR 03/11/22 Lt Hip and Knee pain and stiffness Treating Diagnosis Lt hip and knee stiffness Lt hip and knee pain Reduced gait tolerance Referring MD Dr Valentin Mo Subjective Subjective Roc reports having his Lt TKR completed on 03/11/22. He underwent physical therapy and was very compliant with HEP, continuing daily with ex and walking at [employer] regularly. Over the past 2-3 weeks he has developed stiffness and ache at his LB, SIJ, Lt hip and knee, having trouble crossing his Lt foot over Rt knee to don/doff shoes and socks. He also is having LBP at janet LBP and referred more to Lt side. He reports he would like to get back into walking 30-45 min 4 days per week. Also resume bike riding. Pain Comments 10/25 constant at SIJ, Lt hip and inside of Lt knee Date of Last Physician Visit 06/30/22 Date of Surgery (If applicable) 03/11/22 Current Work Status Retired Preferred Name Roc Precautions Treatment Precautions/Contraindications Skin CA, Heart issues, Spinal Stenosis, Lt TKR 03/11/22, Rt shoulder scope Weight Bearing Status Full Weight Bearing Therapy Limitations/Systems Review Vision,Hearing Objective Range of Motion Hip IR 0-8, Hip ER 0-25 Lt knee 0-0-125 (Rt 130) Strength 4/5 janet hip EXT and ABD Palpation Increased tone janet lumbar psps , limited SIJ movement at superior aspect. Very tight rectus femoris and ITB Assessment Assessment/Impression 77 yo male with DX of recent Lt TKR 03/11/22. It has healed well, but he is reporting stiffness and deep ache at Lt hip and knee. He has reduced AROM janet hip IR and EX, which may be contributing to recent increase in lateral Lt knee pain. He also has weakness 4/5 MMT janet hip EXT and ABD. Very limited janet SIJ movement in both AP and PA planes with spring mobs. Very hypertonic at janet lumbar psps and ITB. He will benefit from continued skilled physical therapy to address the above findings with DTM/MFR/manual stretching and progressive home stretch/ strengthening program. Thank you for this referral. Plan of Care Rehabilitation Potential Good Physical Therapy Goals In 6-10 visits, Roc will be able to: 1. Sit to stand with symmetric WB into Janet LE and without use of UE 2. IND in entire HEP with emphasis on pace, reps and HOLD times 3. Increased janet hip AROM to allow ankle to cross over opp knee and don/doff shoes and socks without concern or difficulties 4. Stand/walk for up to 2 hours without knee or hip concerns. 5. Resume exercise routine at [place] [employer] gym of walking indoor track for 45 min, bike X 20 min and a few leg machines - 4X/Wk Coordination/Communication With Referral Source Treatment Plan/Direct Interventions Joint Mobilization,Manual Therapy,Neuromuscular Re-ed, Therapeutic Activities, Therapeutic Exercises Frequency/Duration 1X/Wk for 10 visits Patient Will Be Discharged From Therapy Completion of LTG(s),Skills Plateau,Independent w/HEP, Independently Progressing Evaluation Billing Untimed Code Treatment Minutes 29 Complexity Moderate Certification Information Initial Certification Date 07/02/22 Ending Certification Date 09/26/22 Provider Signature Shows Agreement With POC & Medical Necessity Physician Signature & Date Requested Please Sign/Date Here Physician Comment/Change : Physician NPI Number #
== END 2022-09-15 11:50 | disposition home or self-care (01) ==
PROVIDERS: PCP Family Medicine; Visit Provider Orthopaedic Surgery
DX: M25.552 Pain in left hip (principal); M25.562 Pain in left knee; M25.652 Stiffness of left hip, not elsewhere classified; M25.662 Stiffness of left knee, not elsewhere classified; Z96.652 Presence of left artificial knee joint; Z51.89 Encounter for other specified aftercare
CPT/HCPCS: 97110; 97140; 97162

== ENCOUNTER 2023-11-10 13:30 | Outpatient (CLI) | payer MEDICARE, SELFPAY | END 2023-11-10 13:31 | disposition home or self-care (01) | PROVIDERS: PCP Family Medicine; Visit Provider Family Medicine | DX: M54.16 Radiculopathy, lumbar region (principal); M51.36 Other intervertebral disc degeneration, lumbar region; M48.062 Spinal stenosis, lumbar region with neurogenic claudication | CPT/HCPCS: 64483; J1100; Q9966 ==